=== PATIENT | male | born 1980 | race Two or more races ===

== ENCOUNTER → 2018-02-13 | Emergency (ER) | payer OTHER ==
[~2018-02-13] VITALS: Ht 177.8 cm; Wt 80.3 kg
[~2018-02-13] MED LIST: LOTRISONE CREAM45 GM TP
== END | disposition home or self-care (01) ==
LOC: ER 11:35
DX: K29.60 Other gastritis without bleeding (principal)

== ENCOUNTER → 2018-08-05 | Outpatient (CLI) | payer OTHER | END | disposition home or self-care (01) | LOC: MRI 07:54 | DX: M54.5 Low back pain (principal); M62.838 Other muscle spasm | CPT/HCPCS: 72148 ==